=== PATIENT | male | born 1965 | race African-American/Black ===

== ENCOUNTER → 2018-10-23 | Outpatient (CLI) | payer OTHER ==
[~2018-10-23] MED LIST: AMOXICILLIN 50500 M1 PO; BACTRIM 400-801 EACH PO; BACTRIM DS TAB1 EACH PO; DIOVAN HCT 1601 EACH PO; FLEXERIL PO; MAXZIDE-25 MG1 EACH PO; OPTIVAR6 ML OP; VALACYCLOVIR1000 MG PO
== END ==
LOC: CAT 09:22
DX: Z13.6 Encounter for screening for cardiovascular disorders (principal); E78.00 Pure hypercholesterolemia, unspecified; I25.10 Atherosclerotic heart disease of native coronary artery without angina pectoris